=== PATIENT | female | born 1950 | race Caucasian/White ===

== ENCOUNTER → 2017-08-05 | Outpatient (CLI) | payer MEDICARE, OTHER ==
[~2017-08-05] MED LIST: REGADENOSON 0.4 MG/5 ML SYRINGE ONE
== END | disposition home or self-care (01) ==
LOC: CFH 12:57
PROVIDERS: ATTEND Internal Medicine Cardiovascular Disease
DX: I25.119 Atherosclerotic heart disease of native coronary artery with unspecified angina pectoris (principal)
CPT/HCPCS: 78452; 93017; A9502; J2785

== ENCOUNTER 2019-01-03 15:07 | Outpatient (CLI) | payer MEDICARE, OTHER | END 2019-01-03 23:59 | disposition home or self-care (01) | LOC: CFH 15:07 | PROVIDERS: ATTEND Internal Medicine Cardiovascular Disease | DX: R42 Dizziness and giddiness (principal); I10 Essential (primary) hypertension; E78.5 Hyperlipidemia, unspecified | CPT/HCPCS: 93306 ==

== ENCOUNTER 2019-04-17 12:30 | Outpatient (CLI) | payer MEDICARE, OTHER | END 2019-04-17 23:59 | disposition home or self-care (01) | LOC: CFH 12:30 | PROVIDERS: ATTEND Internal Medicine | DX: I25.10 Atherosclerotic heart disease of native coronary artery without angina pectoris (principal); E78.2 Mixed hyperlipidemia | CPT/HCPCS: 75571 ==

== ENCOUNTER 2020-04-10 10:34 | Day surgery (SDC) | payer MEDICARE, OTHER ==
[~2020-04-10] VITALS: Ht 174 cm; Wt 72.7 kg
[2020-04-10] MEDS ORDERED: ROSU20TA2 PO (11:09)
[2020-04-10] MEDS ORDERED: FLUT12HF3 IH (11:09)
[2020-04-10] MEDS ORDERED: MELO15TA24 PO (11:09)
[2020-04-10] MEDS ORDERED: LEVO100T PO (11:09)
[2020-04-10] MEDS ORDERED: ESOM20CA PO (11:09)
[2020-04-10] MEDS ORDERED: LOSA100T14 PO (11:09)
[2020-04-10] MEDS ORDERED: METO25TA91 PO (11:09)
[2020-04-10] MEDS ORDERED: LIDOCAINE 2%, 20ML ONE (11:12)
== END 2020-04-10 12:22 | disposition home or self-care (01) ==
LOC: CACL 10:34
PROVIDERS: ATTEND Internal Medicine Cardiovascular Disease
DX: R00.2 Palpitations (principal); I25.119 Atherosclerotic heart disease of native coronary artery with unspecified angina pectoris; I10 Essential (primary) hypertension; M19.90 Unspecified osteoarthritis, unspecified site; E78.2 Mixed hyperlipidemia; G47.33 Obstructive sleep apnea (adult) (pediatric); Z88.1 Allergy status to other antibiotic agents; Z91.048 Other nonmedicinal substance allergy status; Z88.8 Allergy status to other drugs, medicaments and biological substances; Z88.2 Allergy status to sulfonamides; Z79.899 Other long term (current) drug therapy; Z98.890 Other specified postprocedural states
CPT/HCPCS: 33285; C1764

== ENCOUNTER 2020-08-25 10:39 | Observation (INO) | payer MEDICARE, OTHER ==
[~2020-08-25] VITALS: Ht 170.2 cm; Wt 69.2 kg
[~2020-08-25 10:39] MED LIST changes: +ESOM20CA PO; +FLUT12HF3 IH; +LEVO100T PO; +LOSA100T14 PO; +MELO15TA24 PO; +METO25TA91 PO; -REGADENOSON 0.4 MG/5 ML SYRINGE ONE; +ROSU20TA2 PO
--- NOTE | 2020-08-25 11:03 | NUR ---
EKG IN TRIAGE
--- NOTE | 2020-08-25 11:30 | NUR ---
Pt arrived from Dr office where they advised here to come here becuase she has been having "episodes where my heart stops". A&O x4, connected to all monitors, changed into gown independently, speaking in full sentences, and provided a warm blanket. Pt accompanied by . JOSSE SARKAR, no other requsts at this time.
--- NOTE | 2020-08-25 12:25 | NUR ---
lab and xray at bedside. left to grab accurate med list for pt.
[2020-08-25 12:36] LABS: BASOPHILS % (AUTO) 1 % (0-1); EOSINOPHILS % (AUTO) 3 % (1-7); LYMPHOCYTES % (AUTO) 30 % (22-44); MEAN CORPUSCULAR HEMOGLOBIN 31.2 pg (27.0-34.8); MEAN CORPUSCULAR HGB CONC 33.2 g/dL (32.4-35.8); MONOCYTES % (AUTO) 11 % (2-9); NEUTROPHILS % (AUTO) 56 % (42-75); PLATELET COUNT 248 x10^3/uL (130-400); RED BLOOD COUNT 3.98 x10^6/uL (3.82-5.3); RED CELL DISTRIBUTION WIDTH 14.6 % (9.6-15.2)
[2020-08-25 12:43] LABS: ALANINE AMINOTRANSFERASE 38 U/L (12-78); ALBUMIN 3.9 g/dL (3.4-5.0); ANION GAP 4 mmol/L (5-15); CALCIUM 9.7 mg/dL (8.5-10.1); CHLORIDE 108 mmol/L (98-107)
--- NOTE | 2020-08-25 12:45 | NUR ---
PIV inserted per order. Pt tolerated well, denies other needs.
[2020-08-25 12:48] LABS: MD NO
[2020-08-25 12:49] LABS: ALKALINE PHOSPHATASE 72 U/L (45-117); BILIRUBIN,TOTAL 0.4 mg/dL (0.2-1.0); CREATININE 0.91 mg/dL (0.55-1.02); TOTAL PROTEIN 7.6 g/dL (6.4-8.2); TROPONIN I < 0.015 ng/mL (0.000-0.045)
--- NOTE | 2020-08-25 13:07 | NUR ---
Report given to Winnie SANCHEZ
--- NOTE | 2020-08-25 13:22 | NUR ---
Dr. Cruz at bedside to speak with pt.
[2020-08-25 13:40] VITALS: BP 160/70
[2020-08-25] MEDS ORDERED: MIDAZOLAM 1 MG/ML, 5ML ONE (14:09)
[2020-08-25] MEDS ORDERED: CEFAZOLIN PMX 1GM/50ML 50 ML ONE (14:09)
[2020-08-25] MEDS ORDERED: CEFAZOLIN 1,000 MG ONE (14:09)
[2020-08-25] MEDS ORDERED: FENTANYL PF 100 MCG/2ML ONE (14:09)
[2020-08-25] MEDS ORDERED: ONDANSETRON 2MG/ML, 2ML ONE (14:10)
[2020-08-25] MEDS ORDERED: LIDOCAINE 2%, 20ML ONE (14:37)
[2020-08-25] MEDS ORDERED: ACETAMINOPHEN 325 MG TABLET PO PRN ×2 (17:00)
[2020-08-25] MEDS ORDERED: HOLD MEDICATION MC PRN ×2 (17:00)
[2020-08-25] MEDS ORDERED: HYDROcodone/APAP 5/325 TABLET PO PRN ×2 (17:00)
[2020-08-25] MEDS ORDERED: MELOXICAM 15 MG TABLET PO PRN (17:30)
[2020-08-25 18:38] VITALS: BP 106/62
[2020-08-25 20:00] VITALS: BP 113/62
[2020-08-25] MEDS: SODIUM CHLORIDE FLUSH 10ML SYR IVF SCH ×2 (20:46)
[2020-08-25] MEDS ORDERED: LOSA100T2 PO (20:47)
[2020-08-25] MEDS: CEFAZOLIN PMX 1GM/50ML 50 ML IVPB SCH (23:43)
[2020-08-26] MEDS ORDERED: DIPHENHYDRAMINE 25 MG CAPSULE PO PRN
[2020-08-26 01:25] VITALS: BP 132/67
[2020-08-26] MEDS ORDERED: LEVOTHYROXINE 100 MCG TABLET PO SCH (06:00)
[2020-08-26 07:35] VITALS: BP 126/75
[2020-08-26] MEDS: CEFAZOLIN PMX 1GM/50ML 50 ML IVPB SCH (08:07)
[2020-08-26] MEDS: SODIUM CHLORIDE FLUSH 10ML SYR IVF SCH ×2 (08:08→08:09)
[2020-08-26] MEDS ORDERED: METOPROLOL SUCCINATE 25 MG TAB.ER.24H PO SCH (09:00)
[2020-08-26] MEDS ORDERED: LOSARTAN 100 MG TAB PO SCH (09:00)
== END 2020-08-26 11:55 | disposition home or self-care (01) ==
LOC: ED 12:24 → 5SO 12:25 → INTOOBSV 12:25 → ED 13:30 → DCLOUNGE 08-26 11:47
PROVIDERS: ADMIT Internal Medicine Cardiovascular Disease; ATTEND Internal Medicine Cardiovascular Disease
DX: I44.2 Atrioventricular block, complete (principal); R55 Syncope and collapse; I25.10 Atherosclerotic heart disease of native coronary artery without angina pectoris; E78.5 Hyperlipidemia, unspecified; G47.33 Obstructive sleep apnea (adult) (pediatric); I10 Essential (primary) hypertension; E03.9 Hypothyroidism, unspecified; J45.909 Unspecified asthma, uncomplicated; I87.2 Venous insufficiency (chronic) (peripheral); Z79.899 Other long term (current) drug therapy
CPT/HCPCS: 33208; 33286; 36415; 71045; 80053; 83605; 83735; 84484; 85025; 93005; 96365; 96366; 99156; 99157; 99285; C1779; C1785; C1892; G0378; J0690; J2250; J2405; J3010; J3490; Q0163